=== PATIENT | male | born 1995 | race Caucasian/White ===

== ENCOUNTER 2020-07-13 16:12 | Emergency (ER) | payer SELFPAY ==
[~2020-07-13] VITALS: Ht 182.8 cm; Wt 77.0 kg
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
[2020-07-13 18:15] VITALS: BP 143/107
== END 2020-07-13 18:15 | disposition home or self-care (01) ==
LOC: ER 16:14
DX: S02.5XXA Fracture of tooth (traumatic), initial encounter for closed fracture (principal); S02.2XXA Fracture of nasal bones, initial encounter for closed fracture; S63.509A Unspecified sprain of unspecified wrist, initial encounter; S00.83XA Contusion of other part of head, initial encounter; R40.2410 Glasgow coma scale score 13-15, unspecified time; Y04.0XXA Assault by unarmed brawl or fight, initial encounter
CPT/HCPCS: 70450; 70486; 72125; 73130